=== PATIENT | female | born 1955 | race Caucasian/White ===

== ENCOUNTER 2018-05-01 10:24 | Outpatient (CLI) | payer BC | END 2018-05-01 10:25 | disposition home or self-care (01) | LOC: BICMAMMO 10:24 | PROVIDERS: ATTEND Surgery | DX: N60.12 Diffuse cystic mastopathy of left breast (principal); N60.11 Diffuse cystic mastopathy of right breast; Z80.3 Family history of malignant neoplasm of breast | CPT/HCPCS: 77066; G0279 ==

== ENCOUNTER 2018-05-09 14:21 | Outpatient (CLI) | payer BC ==
--- NOTE | 2018-05-09 15:42 | RAD ---
RIGHT HIP 2 VIEWS: Date: 05/09/18 HISTORY: M25.559, hip pain. COMPARISON: None. FINDINGS: No acute displaced fracture or malalignment. Small acetabular osteophytes. Mild narrowing of the pubi c symphysis. Numerous phleboliths in the pelvis. IMPRESSION: No acute abnormality. Low grade degenerative changes. POS: [facility]
== END 2018-05-09 14:22 | disposition home or self-care (01) ==
LOC: TBSIIMAG 14:21
PROVIDERS: ATTEND Neurological Surgery
DX: M25.551 Pain in right hip (principal); M16.11 Unilateral primary osteoarthritis, right hip

== ENCOUNTER 2018-07-16 10:27 | Outpatient (CLI) | payer BC ==
[~2018-07-16 10:27] MED LIST: Iopamidol 370 76% 100 ML VIAL ONE
--- NOTE | 2018-07-16 12:50 | CT ---
CT ABDOMEN WITH AND WITHOUT IV CONTRAST: CT PELVIS WITH AND WITHOUT IV CONTRAST: 07/16/2018 HISTORY: Microhematuria and recurrent urinary tract infection. Frequent trace of blood in urine for years. COMPARISON: Noncontrast CT exam on 04/11/2014. FINDINGS: No renal or ureteral calculi are seen bilaterally. There is no hydronephrosis present. The urinary bladder is partially distended and normal in appearance. There are subcentimeter, zod-yrjzk-im-characterize, hypodense lesions scattered throughout each lobe of the liver, the largest seen at the anterior aspect dome of the liver, which is stable in size comp ared to the study in 2013. Findings are statistically likely related to hepatic cysts. Post cholecy stectomy changes are present. The lung bases, spleen, pancreas, and bilateral adrenal glands demonstrate a normal CT appearance. Scattered vascular calcification is seen in the abdominal aorta. The abdominal aorta is normal in ca liber. The appendix is normal in caliber. There is colonic diverticulosis. The uterus is not visualized, likely related to a prior hysterectomy. Mild degenerative changes are seen in the spine. IMPRESSION: 1. No renal or ureteral calculi are seen bilaterally, and there is no hydronephrosis. 2. No enhancing renal mass is seen. 3. Subcentimeter, khb-kuidn-au-characterize, hypodense lesions in the liver, statistically likely re presenting cysts. 4. Larger hypodense lesions in the posterior segment, right hepatic lobe, anterior abdominal liver, are stable in size and appearance compared to a noncontrasted CT examination in 2013. 5. Colonic diverticulosis. 6. Cholecystectomy. POS: [facility]
--- NOTE | 2018-07-16 14:00 | MRI ---
LUMBAR SPINE MRI WITHOUT IV CONTRAST: HISTORY: A 63-year-old female with a history of low back pain radiating to the right hip and leg, with weaknes s, for several years. TECHNIQUE: Multiplanar, multisequence MRI examination of the lumbar spine is performed. FINDINGS: There are generalized disk desiccation changes and ligamentous and facet hypertrophic changes. The conus medullaris region is unremarkable, terminating at L1-L2. The L1-L2 and L2-L3 disk levels a re unremarkable. At L3-L4, there is very mild lateral recess thinning. At L4-L5, there is slightly more prominent facet arthrosis and some disk bulging, with moderate bilat eral recess stenosis, with very slight foraminal encroachment. At L5-S1, there is mild lateral recess stenosis, with a very small left posterolateral annular fissur e. Slight indention of the ventral thecal sac. No foraminal stenosis. IMPRESSION: 1. Variable severity, mostly mild, canal, lateral recess, and foraminal stenosis, at multiple levels . 2. Generalized disk desiccation changes and ligament and facet hypertrophic changes. 3. No significant abnormal marrow signal. POS: [facility]
--- NOTE | 2018-07-16 14:06 | MRI ---
NONCONTRAST MRI CERVICAL SPINE: DATE: 07/16/18. HISTORY: Chronic neck pain radiating down the left shoulder for several years, but it has worsened. COMPARISON: None available. FINDINGS: Visualized base of the brain as well as cervicomedullary junction demonstrate a normal MRI appearance . Mild end plate degenerative changes are seen at C5-6 and C6-7 levels. Normal signal intensity is oth erwise demonstrated in the bone marrow. C2-3 level: There is no disk bulge or disk herniation. Central spinal canal and neural foramen are patent. There are mild facet degenerative changes present on the left. C3-4 level: There is minimal disk-osteophyte complex which narrows the ventral subarachnoid space. Mild facet degenerative changes are present. The right neural foramen is patent. There is mild left -sided neural foraminal narrowing. C4-5 level: There is no disk bulge or disk herniation. Central spinal canal and neural foramen are patent. C5-6 level: There is loss of intervertebral disk space height. There is a broad-based disk-osteophy te complex present which results in mild narrowing of the central spinal canal with encroachment on t he anterior aspect of the spinal cord. There is minimal right-sided neural foraminal narrowing. The left neural foramen is patent. C6-7 level: There is loss of intervertebral disk height. There is a broad-based disk-osteophyte com plex, greater on the right. Findings result in mild to moderate right-sided neural foraminal narrowi ng. The left neural foramen is patent. There is effacement of the ventral subarachnoid space. C7-T1 level: A small central disk protrusion is present. There is no significant narrowing of the c entral spinal canal, and the neural foramen are widely patent. There are facet hypertrophic changes on the left at the C4-5 level. IMPRESSION: Mild degenerative changes in the cervical spine. POS: [facility]
== END 2018-07-16 10:28 | disposition home or self-care (01) ==
LOC: SCSCT 10:27
PROVIDERS: ATTEND Neurological Surgery
DX: M47.22 Other spondylosis with radiculopathy, cervical region (principal); M54.16 Radiculopathy, lumbar region; M99.83 Other biomechanical lesions of lumbar region; M48.061 Spinal stenosis, lumbar region without neurogenic claudication; M48.8X6 Other specified spondylopathies, lumbar region; K76.9 Liver disease, unspecified; K57.30 Diverticulosis of large intestine without perforation or abscess without bleeding; Z90.49 Acquired absence of other specified parts of digestive tract
CPT/HCPCS: 72141; 72148; 74178

== ENCOUNTER 2018-09-03 12:28 | Outpatient (CLI) | payer BC ==
--- NOTE | 2018-09-03 15:03 | MRI ---
LEFT SHOULDER MRI WITHOUT IV CONTRAST: HISTORY: Chronic left shoulder pain for years. FINDINGS: Multiplanar, multisequence MRI examination of the left shoulder is performed. AC joint arthrosis changes are noted with minimal subchondral cystic changes with minimal fat strandi ng in the subacromial subdeltoid bursa. There is a fairly prominent focal area of ossification adjac ent to the conjoined tendon. This area of ossification measures 0.4 x 1.3 x 0.7 cm, evidence for a f ocal area of calcific peritendinosis. There is evidence for a superior sublabral sulcus and a small focal area of increased signal in the anterior labrum, possibly a small associated SLAP tear. The powell bscapularis tendon and biceps tendons are intact. No acute osteochondral defect. No significant abn ormal marrow signal. 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 Mild fat stranding in the powell bacromial subdeltoid bursa. At least mid-grade partial-thickness undersurface tear at the level of t he magic angle and also at the insertion of the supraspinatus tendon as well as well as an interstiti al component extending into the infraspinatus tendon insertion. A small linear area of increased si gnal in the central/anterior superior labrum, possibly a small superior labrum anterior to posterior tear. There is an associated sublabral sulcus. Acromioclavicular joint arthrosis with some subchond ral cystic changes and mild downsloping of the lateral acromion with minimal fat stranding in the sub acromial subdeltoid bursa. POS: [facility]
== END 2018-09-03 12:29 | disposition home or self-care (01) ==
LOC: SCSMRI 12:28
PROVIDERS: ATTEND Orthopaedic Surgery
DX: M75.102 Unspecified rotator cuff tear or rupture of left shoulder, not specified as traumatic (principal); M19.012 Primary osteoarthritis, left shoulder; R93.7 Abnormal findings on diagnostic imaging of other parts of musculoskeletal system

== ENCOUNTER 2019-06-09 08:37 | Outpatient (CLI) | payer MEDICARE, BC ==
--- NOTE | 2019-06-09 10:10 | MMO ---
Bilateral MAMMO Bilat Diag [facility]. CLINICAL HISTORY: Patient is 64 years old and is seen for diagnostic exam. The patient has the following family history of breast cancer: mother, at age 36. The patient has no personal history of cancer. The patient has a history of left Excisional Biopsy in 1998 - Benign, right Cyst Aspiration in 2002 and right needle biopsy in 04/2005 - benign. VIEWS: The views performed were: bilateral craniocaudal with tomosynthesis; bilateral mediolateral oblique with tomosynthesis; and bilateral mediolateral with tomosynthesis. FILMS COMPARED: The present examination has been compared to prior imaging studies performed at [facility] on 04/20/2016, 04/23/2017, 05/01/2018 and 06/09/2019. MAMMOGRAM FINDINGS: There are scattered fibroglandular densities. There is a round mass with circumscribed margins seen in the right breast. The mass was shown to be a cyst on ultrasound. There are no suspicious masses, suspicious calcifications, or new areas of architectural distortion. IMPRESSION: THERE IS NO MAMMOGRAPHIC EVIDENCE OF MALIGNANCY. A ROUTINE FOLLOW-UP MAMMOGRAM IN 1 YEAR IS RECOMMENDED. THE RESULTS OF THIS EXAM WERE SENT TO THE PATIENT. ACR BI-RADS Category 2 - Benign finding MAMMOGRAPHY NOTE: 1. A negative mammogram report should not delay a biopsy if a dominant of clinically suspicious mass is present. 2. Approximately 10% to 15% of breast cancers are not detected by mammography. 3. Adenosis and dense breasts may obscure an underlying neoplasm. Reported by: GRAHAM GARIBAY MD Electonically Signed: [id number]
--- NOTE | 2019-06-09 12:17 | ULT ---
RIGHT BREAST ULTRASOUND: Date: 06/09/19 COMPARISON: Mammograms dated 06/09/19, 05/01/18, 04/23/17. FINDINGS: A targeted ultrasound of the right breast was performed. In the retroareolar region of the right [address], there is an anechoic fluid collection measuring 3.2 cm in greatest dimension. This has a small am ount of internal debris without suspicious shadowing. No solid mass is seen. IMPRESSION: BI-RADS Category 2 - Benign findings. Annual screening mammography is recommended. This was discussed at-length with the patient. POS: [facility]
== END 2019-06-09 08:38 | disposition home or self-care (01) ==
LOC: BICMAMMO 08:37
PROVIDERS: ATTEND Pain Medicine Pain Medicine
DX: N60.19 Diffuse cystic mastopathy of unspecified breast (principal); Z80.3 Family history of malignant neoplasm of breast
CPT/HCPCS: 76642; 77066; G0279

== ENCOUNTER 2024-10-21 12:57 | Outpatient (CLI) | payer MEDICARE | END 2024-10-21 12:58 | disposition home or self-care (01) | LOC: BICRAD 12:57 | PROVIDERS: ATTEND Internal Medicine | DX: M79.672 Pain in left foot (principal); M19.072 Primary osteoarthritis, left ankle and foot ==

== ENCOUNTER 2024-10-21 22:11 | Emergency (ER) | payer MEDICARE ==
[2024-10-22] MEDS ORDERED: Apixaban 5 MG TAB ONE (01:00)
== END 2024-10-22 01:19 | disposition home or self-care (01) ==
LOC: ERS 22:11
DX: I82.442 Acute embolism and thrombosis of left tibial vein (principal); R60.0 Localized edema
CPT/HCPCS: 36415; 84550; 85025; 85379